=== PATIENT | female | born 1980 | race Caucasian/White ===

== ENCOUNTER 2017-07-22 21:48 | Emergency (ER) | payer MEDICAID ==
[~2017-07-22] VITALS: Ht 170.2 cm; Wt 95.1 kg
[~2017-07-22 21:48] MED LIST: LAMO25TA5 PO
[2017-07-22 21:56] VITALS: BP 126/78
[2017-07-22] MEDS ORDERED: DIAZEPAM 5 MG TABLET ONE (22:20)
[2017-07-22] MEDS ORDERED: DIAZEPAM 5 MG TABLET PO ONE (22:30)
== END 2017-07-22 23:24 | disposition home or self-care (01) ==
LOC: ED 22:08
DX: S43.402A Unspecified sprain of left shoulder joint, initial encounter (principal); X58.XXXA Exposure to other specified factors, initial encounter; Y93.89 Activity, other specified; Y92.009 Unspecified place in unspecified non-institutional (private) residence as the place of occurrence of the external cause; Y99.8 Other external cause status
CPT/HCPCS: 99284

== ENCOUNTER 2018-04-30 14:06 | Emergency (ER) | payer MEDICAID ==
[~2018-04-30] VITALS: Ht 172.7 cm; Wt 78.0 kg
[2018-04-30 14:25] VITALS: BP 137/85
[2018-04-30] MEDS ORDERED: KETOROLAC 30 MG/1 ML IM ONE (15:00)
[2018-04-30] MEDS ORDERED: KETOROLAC 30 MG/1 ML ONE (15:13)
== END 2018-04-30 15:50 | disposition home or self-care (01) ==
LOC: ED 14:56
DX: M25.511 Pain in right shoulder (principal)
CPT/HCPCS: 73010; 73030; 96372; 99284; J1885